=== PATIENT | male | born 1985 | race Caucasian/White ===

== ENCOUNTER 2016-09-12 23:49 | Emergency (ER) | payer BC ==
[2016-09-13] MEDS ORDERED: CLINDAMYCIN 150 MG CAP PO ONE (00:07)
--- NOTE | 2016-09-13 00:08 | Emergency Department Record ---
History of Present Illness - General Chief complaint: Facial Swelling Stated complaint: RT SIDE FACIAL SWELLING Time Seen by Provider: 09/13/16 00:01 Source: Patient Mode of Arrival: Ambulatory Limitations: No limitations - History of Present Illness Initial Comments: The patient is here due to a 2 day hx of R jaw pain and swelling. He did have tooth pain over his R lower 1st molar for a day prior but that stopped now. He denies any trouble swallowing or any fever or INGA. MD Complaint: Facial swelling Onset/Timin -: Days(s) Exposure: Unknown - Related Data Home Medications Medication Instructions Recorded Confirmed Last Taken Hydrocodone/Acetaminophen [[place] 1 tab PO Q6H PRN 09/12/16 09/12/16 09/12/16 7.5mg/325mg] Tramadol HCl [Ultram] 100 mg PO Q6H PRN 09/12/16 09/12/16 09/12/16 Previous Rx's Medication Instructions Recorded Clindamycin HCl [Cleocin HCl] 300 mg PO QID #28 capsule 09/13/16 Allergies Allergy/AdvReac Type Severity Reaction Status Date / Time No Known Drug Allergies Allergy Verified 01/18/16 00:40 Travel Screening - Travel/Exposure Within Last 30 Days Have you traveled within the last 30 days?: No - Travel Symptoms Symptom Screening: None Review of Systems Constitutional: Denies: Chills, Fever Eyes: Denies: Eye discharge ENT: Denies: Congestion Respiratory: Denies: Cough, Dyspnea Past Medical History - SOCIAL HISTORY Smoking Status: Former smoker - RESPIRATORY Hx Respiratory Disorders: No - CARDIOVASCULAR Hx Cardio Disorders: No - NEURO Hx Neuro Disorders: No - GI Hx GI Disorders: No - Hx Genitourinary Disorders: No - ENDOCRINE Hx Endocrine Disorders: Yes Hx Diabetes: Yes (hx (weight loss got him off medications)) - MUSCULOSKELETAL Hx Musculoskeletal Disorders: Yes Hx Back Injury: Yes (2006-fall off a roof) - PSYCH Hx Psych Problems: No - HEMATOLOGY/ONCOLOGY Hx Hematology/Oncology Disorders: No Family Medical History Any Significant Family History?: Yes Hx Diabetes: Father, Mother, Grandparents Hx Heart Disease: Brother/Sister, Grandparents Physical Exam - General General Appearance: Alert, Oriented x3, Cooperative, No acute distress - Head Head exam: Atraumatic, Normocephalic, Normal inspection - Eye Eye exam: Normal appearance, PERRL - ENT ENT exam: negative: Normal exam Teeth exam: Dental tenderness # (There is tenderness to the gum line of the R lower 1st molar. There is no fluctuance or any area to drain.). negative: Normal inspection Throat exam: Normal inspection. negative: Tonsillar erythema, Tonsillomegaly, Tonsillar exudate - Neck Neck exam: Normal inspection, Full ROM. negative: Lymphadenopathy, Meningismus , Tenderness - Respiratory Respiratory exam: Normal lung sounds bilaterally. negative: Respiratory distress Course Vital Signs 09/12/16 23:58 Temperature 97.9 F Pulse Rate [ 65 Pulse Ox Probe] Respiratory 18 Rate Blood Pressure 135/68 [Left Arm] Pulse Ox 98 - Reevaluation(s) Reevaluation #1: The patient appears to have a minor dental abscess under the R lower 1st molar. He is to take the Abx's and see a Dentist MARLENY. 09/13/16 00:15 Disposition Disposition: Discharge Clinical Impression: Abscess, dental Disposition: Home, Self-Care Condition: (1) Good Instructions: Dental Abscess (ED) Additional Instructions: Please take the Clindamycin as directed and see a Dentist MARLENY. Return to the ER for any increased swelling, fever or any trouble swallowing. Prescriptions: Clindamycin HCl [Cleocin HCl] 300 mg PO QID #28 capsule Forms: Patient Portal Access Time of Disposition: 00:10
== END 2016-09-13 00:20 | disposition home or self-care (01) ==
LOC: ER 23:49
DX: K04.7 Periapical abscess without sinus (principal); R68.84 Jaw pain
CPT/HCPCS: 99282